=== PATIENT | female | born 1975 | race Caucasian/White ===

== ENCOUNTER 2018-09-10 07:33 | Day surgery (SDC) | payer OTHER, SELFPAY ==
--- NOTE | 2018-09-09 17:13 | HP.PCM_ITS ---
History and Physical Date of Admission: 09/10/18 Pre-Op History and Physical DOS in my office 09/01/18 ? HPI: The patient is a 43 year old female presenting for pre-operative visit. She is scheduled for Hysteroscopy D&C, for AUB on 09-10-18. ??Procedure discussed along with risks, benefits and complications. ?Other alternatives discussed for management. Consent form signed? Yes. ? ? ? PAST?MEDICAL?HISTORY PAST MEDICAL HISTORY Diagnosis Date ? Diabetes mellitus type 2, uncontrolled, without complications (HCC) 05/01/2018 ? Essential hypertension 04/12/2005 ? Obesity, Class II, BMI 35-39.9 05/01/2018 ? ? PAST?SURGICAL?HISTORY No past surgical history on file. ? ? CURRENT?MEDICATIONS ? Current Outpatient Prescriptions: losartan (COZAAR) 100 mg tablet Take 1 tablet by mouth once daily. Disp: 30 tablet Rfl: 3 metFORMIN ER (GLUCOPHAGE XR) 500 mg 24 hr tablet Take 2 tablets by mouth twice daily. Disp: 120 tablet Rfl: 3 multivitamin tablet Take 1 tablet by mouth once daily. Disp: Rfl: Lancets lancets Test blood sugar(s) 1 times daily. ?Dx: Type 1 DM - Uncontrolled E 10.65 ?Ins ulin: No Disp: 100 Each Rfl: 11 blood sugar diagnostic (BLOOD GLUCOSE TEST) test strip Test blood sugar(s) 1 times daily. ?Dx: Type 1 DM - Uncontrolled E 10.65 ?Insulin: No Disp: 50 Strip Rfl: 11 medroxyPROGESTERone (PROVERA) 10 mg tablet Take 1 tablet by mouth once daily. (Patient not taking: Reported on 09/01/2018 ) Disp: 10 tablet Rfl: 2 ? No current facility-administered medications for this visit. ? ALLERGIES: Sulfa (Sulfonamide Antibiotics) ? PERSONAL HISTORY: SOCIAL?HISTORY Social History ??Marital status: ?Spouse name: ?Years of education: ?Number of children: ? Occupational History Occupation ?Employer ?Comment ? [employer]* [employer] ?? ? Social History Main Topics ??Smoking status: Former Smoker ?Packs/day: 0.00 ?Years: 0.00 ?Smokeless tobacco: Never Used ?Comment: 2002 ??Alcohol use: Yes ?Comment: rarely ??Drug use: No ? FAMILY HISTORY: FAMILY?HISTORY FAMILY HISTORY Problem Relation Age of Onset ? Hypertension Mother ? ? Coronary Artery Disease Mother ?late 40's ? Stroke Mother ? ? COPD Mother ? from respiratoy failure ? Coronary Artery Disease Maternal Grandmother ?late 40' early 50's ? Stroke Maternal Grandmother ? ? Coronary Artery Disease Maternal Grandfather ?50's ? Diabetes Maternal Uncle ? ? Hypertension Father ? ? Hypertension Sister ? ? REVIEW OF SYMPTOMS: GENERAL: denies fevers or chills ENDOCRINOLOGY: has not been on steroids Cardiology : denies palpitations or chest pain Respiratory: denies SOB or cough Hematology: denies history of prolonged bleeding or easy bruising or VTE Allergy: Denies history of personal or family history of allergy to anesthesia ? ? PHYSICAL EXAMINATION: ? VITALS: Last menstrual period 08/28/2018. ? GENERAL: ?The patient is well nourished, well hydrated in no acute distress. ?, The patient is oriented to time, place, and person. NECK: Supple. No lynphadenopathy, normal thyroid, no thyromegaly. LUNGS: Clear to auscultation bilaterally. no wheezes, rhonchi or rales HEART: Regular rate and rhythm, Normal heart sounds and No murmurs or gallops PELVIC US- pending EMB- not done ? ? IMPRESSION: AUB ? PLAN: ??The risks/benefits/alternatives and personal involved for the planned hysteroscopy D&C?were reviewed with the patient. Her questions were answered to her satisfaction and she desires to proceed. ?Consent was signed. ?I reviewed with her postop instructions and expectations. ? ? I have reviewed and updated past medical and surgical history, medications and allergies Khadijah Solis M.D.
[2018-09-10] VITALS (8 sets, daily range): BP systolic 124–160; BP diastolic 71–93; PULSE 105–130; RESP 16; TEMP 36.2–37.2; O2SAT 98–100; BMI 34.2
--- NOTE | 2018-09-10 | EMB_PTH ---
PATIENT: KACI PAULINO LOC: [facility] [place] U#:[id number] AGE/SX: 43/F ROOM: RE09/10/[address]: Dr. Khadijah Solis MD : 1975 BED: DIS: 09/10/2018 SPEC #: [id number] RECD: 09/10/18 11:51 STATUS: NOLAN REY #: [id number] RITESH: 09/10/18 00:[address]: Khadijah Solis DEPT: SURGICAL PATHOLOGY RECD BY: Susana Naranjo ENTERED: 09/10/18 12:21 SP TYPE: ENDOM BX/C JELANI DR: Dr. Weston Zarate MD Tissues: A - Endometrium, NOS B - Endometrium, NOS Procedures: Frozen Section (charge) Surgery Specimen Level IV Frozen (no charge) HEADER OPERATION: Hysteroscopy, dilation and curettage with biopsy of uterine PRE-OP DIAGNOSIS: Abnormal uterine bleeding TISSUE SUBMITTED: A - Endometrial curettings vs fibroid or polyp sent for FS at 1146, B - Endometrial curettings FROZEN SECTION DIAGNOSIS A. Endometrium, curettings: Consistent with complex hyperplasia. AM:paty 09/10/18 Case has been reviewed in consultation with Dr. Winkler who concurs with the above diagnosis. IDC:CE MICROSCOPIC DIAGNOSIS A. Endometrium, curettings: High grade malignant neoplasm consistent with poorly differentiated adenocarcinoma of endometrial origin. B. Additional endometrial curettings: High grade malignant neoplasm consistent with poorly differentiated adenocarcinoma of endometrial origin. AM:paty 09/21/18 COMMENT A. Immunohistochemistry ([id number]) supports the above diagnosis. Case is peer reviewed at [employer]. Complete report is viewable in patient's EMR. The case was reviewed and diagnosis discussed with Dr. Solis on 09/11/18 at 10:50 a.m. MICROSCOPIC DESCRIPTION Slides are reviewed. GROSS DESCRIPTION A - Received fresh for frozen section consultation labeled with the patient's name is a specimen designated endometrial curettings. The specimen consists of multiple irregular fragments of friable pink-lehman soft tissue that in aggregate measure 5 x 4.5 x 1 cm. Residential Leasing Manager portions are submitted for frozen section consultation in two blocks. The remainder of the specimen is submitted in its entirety in cassettes 3-7. / AM:paty 09/10/18 B - Received in fixative is one container labeled with the patient's name and designated endometrial curettings. The specimen consists of multiple irregular and friable fragments of lehman tissue that in aggregate measure 5 x 3 x 0.5 cm. The larger fragments are sectioned and totally submitted along with the smaller fragments in three cassettes. / AM: 09/11/18 TC:0 [facility]: [id number] x2, 74127 ADDENDUM ADDENDUM ADDENDUM ADDENDUM ADDENDUM ADDENDUM ADDENDUM ADDENDUM ADDENDUM ADDENDUM 10/15/2018 11:55 ADDENDUM 10/15/2018 11:55 ADDENDUM 10/15/2018 11:55 ADDENDUM 10/15/2018 11:55 ADDENDUM 10/15/2018 11:55 This addendum is added to incorporate an outside pathology consultation report. The case was examined at [facility] (#[id number]) and the following diagnosis was rendered. Endometrium, curettings and additional endometrial curettings (A & B): Endometrial adenocarcinoma, endometrioid type with spindled component, FIGO grade 2. Please see complete above mentioned consultation report in EMR
[2018-09-10 07:51] LABS: Internal QC Validated? YES +Cl - CLEAR BKGD; Pregnancy, Urine Negative Negative
[2018-09-10 07:56] LABS: Hematocrit 36.6 % (37-47); Hemoglobin 11.8 g/dl (12.0-15.0); Mean Corp Hgb Conc 32.2 g/gl (32-36); Mean Corpuscular Hgb 27.7 pg (27.0-32.0); Mean Corpuscular Volume 85.9 fL (81-99); Mean Platelet Vol. 8.8 fl (6.2-12.0); Platelet Count 465 K/mm3 (150-450); RBC Distribution Width CV 13.2 % (11.6-14.6); RBC Distribution Width SD 41.2 fl (35.1-43.9); Red Blood Count 4.26 M/mm3 (4.2-5.4); Scan Indicated on CBC? Y/N NO; White Blood Count 8.7 K/mm3 (4.4-11.0)
[2018-09-10] MEDS: Acetaminophen 500 MG Tablet 1000 MG PO (08:04)
[2018-09-10] MEDS: Ketorolac 30 MG/ML Syringe 60 MG IM (08:05)
[2018-09-10 08:18] LABS: Anion Gap 8 (5-15); BUN 14 mg/dL (7-18); BUN/Creat Ratio 18.9 RATIO (10-20); Calcium,Total 8.6 mg/dL (8.5-10.1); Chloride 103 mmol/L (98-107); Creatinine, Serum 0.74 mg/dL (0.55-1.02); EST Glomerular Filtration Rate 91 mL/min (>60); Est Glom Filt Rate - Afr Amer 110 mL/min (>60); Estimated Creatinine Clearance 84.65 ml/min; Glucose 145 mg/dL (74-106); Potassium 4.1 mmol/L (3.5-5.1); Sodium Level 136 mmol/L (136-145); Thyroid Stim Hormone (TSH) 1.58 uIU/mL (0.358-3.74)
[2018-09-10 08:26] LABS: Bedside Glucose 149 mg/dL (70-110)
--- NOTE | 2018-09-10 09:00 | IMM_PTH ---
PATIENT: KACI PAULINO LOC: [facility] [place] U#:[id number] AGE/SX: 43/F ROOM: RE09/10/[address]: Dr. Khadijah Solis MD : 1975 BED: DIS: 09/10/2018 SPEC #: [id number] RECD: 09/11/18 11:09 STATUS: NOLAN REEran #: [id number] RITESH: 09/10/18 09:[address]: Khadijah Solis DEPT: IMMUNOHISTOCHEMISTRY RECD BY: Susana Naranjo ENTERED: 09/11/18 11:13 SP TYPE: IMMUNO OTHR DR: Dr. Weston Zarate MD Tissues: A - Endometrium, NOS Procedures: Synapto (add) MSH2 (add) MLH-1 (add) MSH6 (add) Anti-PMS2 (add) CA-125 (add) CD56 (add) CEA (add) CHROMO (add) CK19 (add) CK20 (add) CK7 (add) CK8 (add) KI-67 (add) P53 (add) MO (add) Vimentin (add) Pankeratin (add) ER (initial) PHYSICIAN & INSTITUTION [place] [id number] SPECIMEN INFORMATION: Tissue Source: A - Endometrial curettings Clinical Info: Abnormal uterine bleeding Specimen Number: [id number] [id number] CPT code: 97357, 86782 x18 METHODOLOGY: Deparaffinized sections of prefer/formalin-fixed tissue or PAP/DQ stained slides are incubated with monoclonal/polyclonal antibodies/oligonucleotide probes. Localization is made via biotin free immunoperoxidase method. Appropriate controls are performed and reacted as expected. Results on target cell population are indicated in the following table: RESULTS: ANTIBODY / CLONE RESULT Block A6 ER (6F11) positive MO (1E2) positive AE1-3 (AE1/AE3/PCK26) positive CK7 (OV-TL12/30) positive CK8 (33mcelF85) positive CK20 (KS20.8) negative Vimentin (V9) positive CK19 (A53-B/A2.26) positive CD56 (123C3.D5) negative Chromo (LK2H10) positive, focal Synapto (polyclonal) positive, focal Ki-67 (30-9) positive, low CEA (11-7/TF-3HB-1) negative P53 (DO-7) positive, <50% CA125 (OC125) negative MLH-1 (M1) positive MSH2 (25D12) positive MSH6 (44) positive PMS2 (HYI1366) positive These tests were developed and their performance characteristics determined by [facility]. They may not have been cleared or approved by the U.S. Food and Drug Administration. The FDA has determined that such clearance or approval is not necessary. INTERPRETATION: Endometrial curettings: High grade malignant neoplasm consistent with poorly differentiated adenocarcinoma of endometrial origin. Result of Microsatellite Instability Study: Negative (no loss of mismatch protein; no microsatellite instability detected). AM:paty 09/21/18 Comment: Case is peer reviewed at [employer].
--- NOTE | 2018-09-10 11:30 | DCINST_ITS ---
Discharge Diet: No Restrictions Discharge Activity: Return to Normal Activity, May Shower, May Take a Tub Bath - in 2 weeks. Return to work on:: 09/14/18 May shower in (days): 1 May resume sexual activity in: 4-6 weeks Call your doctor if your incision/area has: Continuous Slow Oozing, Sudden Increased Bleeding, Increased Pain/ Swelling Call your doctor if you observe: Fever of 101 or Higher, Inability to have a bowel movement, Using more than one pad per hour - for 2 hrs in a row, Uncontrolled pain Allergies/Adverse Reactions: Allergies Sulfa (Sulfonamide Antibiotics) Allergy (Verified 09/03/18 14:43) Rash Medications to take at Discharge Losartan Potassium [Cozaar] 100 mg PO DAILY 09/03/18 Metformin HCl [Metformin ER Osmotic] 1,000 mg PO BID 09/03/18 Ibuprofen [Motrin] 600 mg PO Q6H PRN #60 tablet 09/10/18 Oxycodone HCl/Acetaminophen [Percocet 5/325] 1 - 2 tablet PO Q8 PRN 2 Days #6 tablet 09/10/18 The following prescriptions were given: Oxycodone HCl/Acetaminophen [Percocet 5/325] 1 - 2 tablet PO Q8 PRN 2 Days #6 tablet PRN Reason: Pain Ibuprofen [Motrin] 600 mg PO Q6H PRN #60 tablet PRN Reason: Pain Primary Care Physician: Weston Zarate MD [Primary Care Provider] - Test Results: Test results from this visit will be discussed in further detail at your follow- up appointment, if applicable. Please Follow Up With: Khadijah Solis MD - [phone] When: 4-5 weeks or as needed
--- NOTE | 2018-09-10 12:07 | PCM.OPRPT ---
Report of Operation Date of Procedure: 09/10/18 Pre-Operative Diagnosis: Abnormal uterine bleeding, thickened endometrium versus endometrial mass Post-Operative Diagnosis: Same plus uterine mass protruding from the cervix and at least complex endometrial hyperplasia on frozen biopsy, final pathology pending Surgery/Procedure Performed:: Hysteroscopy dilation and curettage and biopsy of uterine mass Description of Surgical Findings:: Very narrow tight vagina with very tight vaginal band approximately 1 cm in the hymen, cervix is not well-defined. It appears dilated and very thin with a friable mass that is approximately 2 cm x 2 cm protruding from the cervix. Endometrial cavity is very distorted, it appears there is a large mass in the endometrial cavity. scouring train operator: None Type of Anesthesia:: MAC/Supplemental/Local Anesthesiologist: Roque Steiner Special Medications: none Specimen's removed: Endometrial curettings and biopsy of uterine mass Drains: None Estimated Blood Loss (mL): 100 cc Fluids Replaced: 800 cc LR Description of Procedure: The patient was taken to the OR where she was prepped and draped in dorsal lithotomy position. The vaginal introitus was very narrow. I got some narrow retractors and a bivalve speculum, but I was still unable to adequately visualize the cervix. I then made a small incision approximately 1.5 cm long in the tight band of vaginal tissue approximate 1 cm proximal to the hymenal ring that allowed for some stretch of the vagina and a bivalve speculum was able to be placed. I was able to finally visualize the cervix, there was just a large amount of friable tissue extending from the cervix. I initially thought this was the cervix but when I attempted to grasp it with a ring forcep it was obvious that the friable material was not the cervix. I was then able to grasp the vaginal apex and cervix with a an Allis clamp. I removed several large pieces of the protruding mass. At this point, the mass was now inside the external cervical loss. I was then able to dilate the cervix dilators. The [5mm] hysteroscope was placed into the uterine cavity and the above findings were noted. Because of the narrow vagina and the distortion of the uterus, and just the technical difficulty with her anatomy in the case, I was unable to create a good seal. Therefore, the hysteroscope fluid was constantly pouring out the cervix. I determined that there is still large amount of the mass located inside the uterus. A portion of the mass had been sent to pathology. Frozen section came back at least complex endometrial hyperplasia in the portion that was examined. At this point, the termination was made not to proceed with attempting to remove any more of the mass. A gentle sharp curettage was done and only a small amount more of friable material was removed. I could feel the mass with the endometrial curette, we determined that removing it was unnecessary as she would likely require hysterectomy with this large mass and complex hyperplasia. In addition, because of the technical difficulty of the case she was at high risk for uterine perforation. The hysteroscope was removed. I held some pressure on the cervix and uterus for approximately 2 minutes, and the amount of bleeding from the cervical loss was minimal at that point. I placed 2 [id number] sutures in the small vaginal cut that I had made to allow adequate visualization with a speculum. The vaginal incision was hemostatic. The remainder the instruments were removed. Vaginal sweep was performed by me. The patient was awakened and taken to the recovery room in stable condition. Hysteroscopic ins: 800cc normal saline Hysteroscopic outs:650cc Findings: Endometrial cavity: Very distorted, appears to be a large mass. Tubal ostia were not identified. Cervix: Not well identified, dilated and attenuated Vagina: No obvious masses or extension onto the vaginal wall Grafts/Implants Used: None - Complications None - Admit VTE Documentation VTE Present on Admission: No VTE Mechan Device Prophylaxis: SCD's VTE Pharm Prophylaxis ordered?: No Reason prophylaxis not ordered:: Procedure Not Indicated
== END 2018-09-10 13:43 | disposition home or self-care (01) ==
LOC: SDC 07:36 → AC 07:37
PROVIDERS: Family Provider Family Medicine; PCP Family Medicine; Referring Provider Obstetrics & Gynecology; Visit Provider Obstetrics & Gynecology
PROC: 0UDB8ZZ Extraction of Endometrium, Via Natural or Artificial Opening Endoscopic (ICD-10-PCS; CPT 58558; principal; 2018-09-10 08:50)
DX: C54.1 Malignant neoplasm of endometrium (principal); N85.01 Benign endometrial hyperplasia; N89.5 Stricture and atresia of vagina; N93.9 Abnormal uterine and vaginal bleeding, unspecified; R93.89 Abnormal findings on diagnostic imaging of other specified body structures; E66.9 Obesity, unspecified; Z68.34 Body mass index [BMI] 34.0-34.9, adult; I10 Essential (primary) hypertension; E11.65 Type 2 diabetes mellitus with hyperglycemia; Z87.891 Personal history of nicotine dependence
CPT/HCPCS: 00952; 58558; 36415; 80048; 81025; 82962; 84443; 85027; 88305; 88331; 88341; 88342; J7120; J2405

== ENCOUNTER 2018-10-17 09:33 | Emergency (ER) | payer OTHER, SELFPAY ==
[2018-09-10 08:06] VITALS: BMI 34.2
[2018-10-17 09:34] VITALS: BP 142/73; PULSE 156; RESP 18; TEMP 37.2; O2SAT 100; BMI 34.3
--- NOTE | 2018-10-17 09:46 | EKG12_ITS ---
Test Reason : POST SURGERY Blood Pressure : / mmHG Vent. Rate : 152 BPM Atrial Rate : 152 BPM P-R Int : 114 ms QRS Dur : 068 ms QT Int : 328 ms P-R-T Axes : 065 077 052 degrees QTc Int : 521 ms Sinus tachycardia Nonspecific T wave abnormality Abnormal ECG Confirmed by YNES MOHR, DAYAMI ([id number]), rewrite editor KASH MUSTAFA ([id number]) on 10/23/2018 9:26:03 AM Referred By: Confirmed By:DAYAMI QUICK MD
[2018-10-17 09:47] VITALS: BP 133/72; PULSE 148; RESP 24; O2SAT 100
--- NOTE | 2018-10-17 09:54 | CT_ITS ---
STUDY: CT ABDOMEN AND PELVIS WITHOUT CONTRAST REASON FOR EXAM: Female, 43 years old. Abdominal pain with recent hysterectomy for cancer RADIATION DOSAGE (If Supplied By Facility): CTDIvol = ( 15.14 ) mGy, DLP = ( 888.69 ) mGycm TECHNIQUE: Transaxial images were obtained from the dome of the diaphragm to the symphysis pubis without oral contrast, and without intravenous contrast. Sagittal and coronal images were reconstructed. Individualized dose optimization techniques were used for this CT. COMPARISON: None. FINDINGS: Small right pleural effusion is demonstrated. Lung bases are otherwise unremarkable. The visualized portions of the heart are within normal limits. Normal liver. Normal gallbladder and extrahepatic biliary system. Normal spleen. Normal pancreas. Normal bilateral adrenal glands. Normal right kidney. Nonobstructing calculi of the inferior left kidney measured 3-4 mm. Normal visualized stomach. Normal small intestine. There are multiple colonic diverticula consistent with diverticulosis. There is non-visualization of the appendix. Normal abdominal aorta. Normal inferior vena cava. Normal retroperitoneum. There is mild abdominal ascites with scattered pneumoperitoneum and air within the abdominal wall compatible with recent surgery (correlation with surgery timing suggested). Air-fluid level in the urinary bladder may relate to recent catheterization. Anterior to the rectum, there is an oval-shaped fluid collection measuring 2.5 x 4.8 cm on axial image 162 but no air-fluid levels are seen. No obvious pelvic sidewall adenopathy although detection is limited without IV contrast. Uterus is surgically absent. Mild expected stranding of the abdominal wall and pelvic fat given recent surgery. No lytic or sclerotic bone lesions. CT/Abdomen/Pelvis without Cont IMPRESSION: 1. Expected mild peritoneal fluid and scattered air given history of recent surgery although correlation with timing of surgery is suggested. 2. 2.5 x 4.8 cm focal fluid collection in the prerectal pelvis may represent operative fluid collection (such as seroma or hematoma). Abscess is felt to be less likely. 3. Nonobstructing left nephrolithiasis. 4. Small right pleural effusion. Electronically Signed: Sunny Farias MD at 11:06 EST , Service support ,
[2018-10-17 10:06] LABS: Absolute Lymphocyte Count 0.35 X10^3/ul (0.83-4.51); Absolute Neutrophil Count 8.1 X10^3/uL (2.0-7.7); Basophil# 0.01 X10^3/uL; Basophil% 0.1 % (0-1); Differential Indicated SCAN CRITERIA MET; Eosinophil# 0.02 X10^3/uL; Eosinophils% 0.2 % (0-5); Hematocrit 32.6 % (37-47); Hemoglobin 10.2 g/dl (12.0-15.0); Lymphocyte # 0.35 X10^3/ul (4.0); Mean Corp Hgb Conc 31.3 g/gl (32-36); Mean Corpuscular Hgb 25.8 pg (27.0-32.0); Mean Corpuscular Volume 82.3 fL (81-99); Mean Platelet Vol. 8.9 fl (6.2-12.0); Monocyte# 0.28 X10^3/uL; Monocyte% 3.2 % (0-10); Neutrophil # 8.14 X10^3/uL (2.7-7.7); Neutrophil % 92.4 % (47-70); POSITIVE COUNT NO; POSITIVE DIFFERENTIAL YES; POSITIVE MORPHOLOGY YES; Platelet Count 516 K/mm3 (150-450); RBC Distribution Width CV 12.6 % (11.6-14.6); RBC Distribution Width SD 38.1 fl (35.1-43.9); Red Blood Count 3.96 M/mm3 (4.2-5.4); White Blood Count 8.8 K/mm3 (4.4-11.0)
[2018-10-17] MEDS: Morphine 4 MG/ML Syringe IV ×2 (10:11→13:55)
[2018-10-17] MEDS: 0.9% Normal Saline 1,000 ML 1000 ML IV (10:11)
[2018-10-17] MEDS: Ondansetron 4 MG/2 ML Vial IV (10:12)
--- NOTE | 2018-10-17 10:13 | ED.VISSUMM ---
- ER Visit Summary Date of Service: 10/17/18 Chief Complaint: Abdominal pain History of Present Illness: The patient is a 43 F who started with abdominal pain this morning. 9 days ago she had a hysterectomy with bilateral oophorectomy done at [facility]. This was done due to adenocarcinoma type II. She states that her postoperative course has been well. She is on a stool softener. This morning she had a sudden onset of sharp pain in her lower abdomen. Nothing made it better or worse. She denies any nausea or vomiting. No diarrhea. She had a bowel movement before this pain. She took ibuprofen at 7 AM. Denies any blood in her stools. She has had no bleeding from the vaginal area. No hematemesis. Physical Examination: Vital signs are reviewed. Heart rate noted at 150. HEENT exam unremarkable. Heart is tachycardic and regular with no murmurs. Lungs are clear bilaterally. Abdomen is soft with exquisite tenderness diffusely. She does have guarding and rebound tenderness. Bowel sounds are hypoactive. Extremities show no edema. Neurologic exam is normal Test Results: Hemoglobin 10.2, hematocrit 32.6. Glucose 152. AST 11. EKG is sinus tachycardia with a rate of [address] changes. CAT scan reveals peritoneal fluid as well as a 2.5 x 4.8 cm fluid collection of the pelvis. This could represent a seroma or a hematoma Emergency Department Course and Treatment: The patient was given IV fluids. She was also given morphine and Zofran. Heart rate went down to the 120s. My concern is that this fluid could be blood due to her recent surgery 9 days ago. I feel she should be transferred back to the [facility] where her surgery was performed. I spoke with a Dr. Denney on-call for her surgeon. She accepted the patient in transfer Treatment Plan: [] Disposition: Transfer Impression: Abdominal pain, postoperative hematoma, postoperative peritoneal fluid, recent hysterectomy and oophorectomy This note was generated with [employer] dictation software. It may contain incorrect words, spelling, and punctuation that were not noted in review of the chart prior to signing ED Disposition - Plan for ED Patient: Referrals: Weston Zarate MD [Primary Care Provider] -
[2018-10-17 10:18] LABS: ALB/GLOB Ratio 0.7 RATIO (0.9-2.4); AST(SGOT) 11 U/L (15-37); Alanine Aminotransfer ALT/SGPT 19 U/L (13-56); Alkaline Phosphatase 68 U/L (45-117); Anion Gap 9 (5-15); BUN 10 mg/dL (7-18); BUN/Creat Ratio 16.1 RATIO (10-20); Calcium,Total 8.5 mg/dL (8.5-10.1); Chloride 101 mmol/L (98-107); Creatinine, Serum 0.62 mg/dL (0.55-1.02); EST Glomerular Filtration Rate 111 mL/min (>60); Est Glom Filt Rate - Afr Amer 135 mL/min (>60); Estimated Creatinine Clearance 101.03 ml/min; Globulin 4.6 g/dL (2.2-4.2); Glucose 152 mg/dL (74-106); Lipase 139 U/L (73-393); Potassium 3.7 mmol/L (3.5-5.1); Protein, Total 7.6 g/dL (6.4-8.2); Sodium Level 136 mmol/L (136-145)
[2018-10-17 10:27] LABS: Anisocytosis RARE; Differential Comment SCANNED; Hypochromasia 1+; Platelet Estimate MOD INC (ADEQ); Polychromasia RARE
--- NOTE | 2018-10-17 11:20 | NURSING ---
CALLING [facility] MAIN FOR TRANSFER.
[2018-10-17 11:30] VITALS: BP 132/79; PULSE 124; RESP 20; O2SAT 98
--- NOTE | 2018-10-17 13:17 | NURSING ---
CALLED [facility]. TALKED TO JAMIE. SHE WAS TRYING TO GET AHOLD OF SURGEON
--- NOTE | 2018-10-17 13:26 | NURSING ---
[facility] IS CALLING [facility]
--- NOTE | 2018-10-17 13:38 | NURSING ---
DR ALVAREZ FOR DR BOJORQUEZ
--- NOTE | 2018-10-17 13:48 | NURSING ---
[facility] MAIN G71 BED 6 REPORT [phone]
[2018-10-17 13:57] VITALS: BP 123/81; PULSE 126; RESP 22; O2SAT 98
[2018-10-17 15:37] VITALS: BP 122/85; PULSE 125; RESP 18; O2SAT 96
== END 2018-10-17 15:40 | disposition short-term general hospital (02) ==
LOC: ED 09:56
PROVIDERS: Emergency Provider Emergency Medicine; Family Provider Family Medicine; PCP Family Medicine
DX: R10.9 Unspecified abdominal pain (principal); N99.840 Postprocedural hematoma of a genitourinary system organ or structure following a genitourinary system procedure; Z90.710 Acquired absence of both cervix and uterus; I10 Essential (primary) hypertension
CPT/HCPCS: 74176; 80053; 83690; 85025; 93005; 96361; 96374; 96375; 96376; 99285; J7030; A4216; J2405

== ENCOUNTER 2021-09-12 07:16 | Outpatient (CLI) | payer OTHER, SELFPAY ==
--- NOTE | 2021-09-12 07:23 | US_ITS ---
STUDY: ABDOMINAL ULTRASOUND - RIGHT UPPER QUADRANT REASON FOR VISIT: Female, 46 years old FATTY LIVER TECHNIQUE: Ultrasound evaluation of the right upper quadrant was performed with real-time and static kelley-scale imaging. TECHNICAL QUALITY: Adequate. COMPARISON: None. FINDINGS: Liver: The liver is enlarged and measures 20.5 cm. There is increased echogenicity consistent with fatty infiltration. The bile ducts are within normal limits. There is hepatic color flow. The direction of portal flow is hepatopetal. There is no demonstrated mass lesion. Gallbladder: Normal distended gallbladder. The gallbladder wall measures 2.2 mm. There is a negative sonographic Rodriguez''s sign. There is no pericholecystic fluid. There are no gallstones. Common Bile Duct (C.B.D.): The common bile duct measures 2.2 mm. Pancreas: Normal size of the head, body and tail of the pancreas. There is normal echogenicity of the pancreas. There is no demonstrated pancreatic mass or cyst. Right Kidney: Normal size of the right kidney. The right kidney measures 10.7 cm x 6.6 cm x 4.5 cm. Normal renal cortex. The right cortex measures 1.3 cm. There is no demonstrated renal mass or cyst. There is no right hydronephrosis. IMPRESSION: Hepatomegaly and fatty infiltration of the liver. Electronically Signed: Cezar Lau MD at 9:46 EST , STUDY: ABDOMINAL ULTRASOUND - ELASTOGRAPHY REASON FOR VISIT: Female, 46 years old. Fatty infiltration of the liver. TECHNIQUE: Liver stiffness measurements were obtained on a R-Squared 85 ultrasound machine using a CA 1-7 probe following the SRU guidelines. 3 measurements were obtained using a 2-D-SWE method. The IQR/M was 24% suggesting a quality data set. TECHNICAL QUALITY: Adequate. COMPARISON: None. FINDINGS: Liver: Hepatomegaly and fatty infiltration of the liver. Median liver stiffness measured 7.3 kPa. US/Abdomen Limited IMPRESSION: Liver stiffness measures 7.3 kPa compatible with F 2/3 Metavir score. Electronically Signed: Cezar Lau MD at 9:48 EST ,
== END 2021-09-12 23:59 | disposition short-term general hospital (02) ==
PROVIDERS: PCP Family Medicine; Referring Provider Internal Medicine Gastroenterology; Visit Provider Internal Medicine Gastroenterology
DX: K76.0 Fatty (change of) liver, not elsewhere classified (principal)
CPT/HCPCS: 76705; 76981